=== PATIENT | female | born 1985 | race American Indian/Alaskan Native ===

== ENCOUNTER 2017-11-06 12:43 | Emergency (ER) | payer SELFPAY ==
[2017-11-06 14:13] VITALS: BP 120/79
--- NOTE | 2017-11-06 18:30 | Emergency Department Report ---
Minor Respiratory - HPI Chief Complaint: Upper Respiratory Infection Stated Complaint: FLU LIKE SYMPTOMS Time Seen by Provider: 11/06/17 17:59 Duration: 2 Days Pain Location: Facial (sinus pressure) Severity: moderate Minor Respiratory: Yes Rhinorrhea, Yes Able to Tolerate Fluids, No Sore Throat, No Ear Pain, No Cough, No Sick Contacts, No Hemoptysis, No Chest Pain, No Shortness of Breath, No Fever Other History: This is a 31 y.o. female presents with runny nose, sinus pressure , sore throat, and head ache for 2 days. Reports not being able to work because she look and 2 large monitors at work and her head is hurting so bad. Reports having recurrent sinusitis. She was seen by ENT a few years ago and admits to not following up with them. She has tried tylenol cold & flu and theraflu, which didn't stop headache. Denies fever, nausea, vomiting, chest pain, body aches, and weakness. ED Review of Systems ROS: Stated complaint: FLU LIKE SYMPTOMS Other details as noted in HPI Constitutional: see HPI. denies: chills, fever Eyes: denies: eye pain, eye discharge, vision change ENT: throat pain, congestion. denies: ear pain, dental pain, hearing loss, epistaxis Respiratory: denies: cough, shortness of breath, wheezing Cardiovascular: denies: chest pain, palpitations Gastrointestinal: denies: abdominal pain, nausea, diarrhea Neurological: headache (sinus pressure) ED Past Medical Hx - Past Medical History Previous Medical History?: No - Surgical History Past Surgical History?: No - Social History Smoking Status: Never Smoker - Medications Home Medications: Home Medications Medication Instructions Recorded Confirmed Last Taken Type Amoxicillin/Potassium Clav 1 each PO BID 5 Days #10 tablet 11/06/17 Unknown Rx [Augmentin 875-125 Tablet] Fluticasone [Flonase] 1 spray NS QDAY #1 bottle 11/06/17 Unknown Rx Ibuprofen 800 mg PO Q6H PRN #20 tablet 11/06/17 Unknown Rx Minor Respiratory Exam - Exam General: Vital signs noted. No distress. Alert and acting appropriately. HEENT: Yes Pharyngeal Erythema, Yes Moist Mucous Membranes, Yes Rhinorrhea ( mucoid discharge, swollen, red turbinates bilaterally), Yes Maxillary Tenderness (on percussion bilaterally), No Pharyngeal Exudates, No Conjuctival Injection, No Frontal Tenderness Ear: Neither TM Bulge, Neither TM Erythema, Neither EAC Pain, Neither EAC Discharge Neck: Yes Supple, No Adenopathy Lungs: Yes Good Air Exchange, No Wheezes, No Ronchi, No Stridor, No Cough, No Labored Respirations, No Retractions, No Use of Accessory Muscles, No Other Abnormal Lung Sounds Heart: Yes Regular, No Murmur Abdomen: Yes Normal Bowel Sounds, No Tenderness, No Peritoneal Signs Skin: No Rash, No Edema Neurologic: Alert and oriented, no deficits. Musculoskeletal: Unremarkable. ED Course Vital Signs 11/06/17 14:09 Temperature 98.9 F Pulse Rate 78 Respiratory 18 Rate Blood Pressure 120/79 O2 Sat by Pulse 100 Oximetry ED Medical Decision Making - Medical Decision Making This is a 31 y.o. female presents with sinus pressure and headache for 2 days. Taking tylenol cold & flu, and theraflu for symptom control w/o improvement. Reports history of recurrent sinusitis. Seen by ENT a few years ago, never f/u. Physical assessment cc Susceptible of maxillary sinusitis Discharged home with augmentin and flonase. Continue taking tylenol and ibuprofen for pain. Critical care attestation.: If time is entered above; I have spent that time in minutes in the direct care of this critically ill patient, excluding procedure time. ED Disposition Clinical Impression: Maxillary sinusitis Qualifiers: Chronicity: acute Recurrence: non-recurrent Qualified Code(s): J01.00 - Acute maxillary sinusitis, unspecified Disposition: DC- TO HOME OR SELFCARE Is pt being admited?: No Does the pt Need Aspirin: No Condition: Stable Instructions: Sinusitis (ED) Additional Instructions: Use warm moist compresses over sinuses. Use ibuprofen or tylenol for pain. Use nasal saline spray. Avoid taking antihistamines. Follow up with Primary Care Provider if fever, SOB, chest pain, or symptoms do not improve as discussed. Prescriptions: Amoxicillin/Potassium Clav [Augmentin 875-125 Tablet] 1 each PO BID 5 Days #10 tablet Fluticasone [Flonase] 1 spray NS QDAY #1 bottle Ibuprofen 800 mg PO Q6H PRN #20 tablet PRN Reason: Pain Referrals: LAMAR CHUNG MD [Primary Care Provider] - 3-5 Days [facility] [Outside] - 3-5 Days [facility] [Outside] - 3-5 Days [facility] [Outside] - 3-5 Days Forms: Work/School Release Form(ED) Time of Disposition: 19:02 Print Language: AFGHAN
== END 2017-11-06 19:20 | disposition home or self-care (01) ==
LOC: ED 12:43
DX: J01.00 Acute maxillary sinusitis, unspecified (principal)
CPT/HCPCS: 99282